=== PATIENT | male | born 1955 | race Caucasian/White ===

== ENCOUNTER 2019-07-11 15:11 | Inpatient (IN) ==
[2019-07-11] MEDS ORDERED: NS 1,000 ML IV ONE (15:17)
[2019-07-11] MEDS ORDERED: ZOFRAN IV ONE (15:17)
[2019-07-11 15:49] LABS: BASO# 0.04 X1000 (0.0-0.2); BASO% 0.3 % (0.0-0.8); EOS# 0.17 X1000 (0.0-0.7); EOS% 1.3 % (0.0-10.0); HEMATOCRIT 49.1 % (42.0-52.0); HEMOGLOBIN 16.8 g/dL (14.0-18.0); IMM GRAN# 0.07 X1000 (0.0-0.04); IMM GRAN% 0.5 % (0.0-0.5); LYMPH% 16.6 % (20.5-51.1); MCH 32.7 PG (27-31); MCHC 34.2 g/dL (33-37); MCV 95.7 FL (81-99); MONO# 0.97 X1000 (0.11-0.59); MONO% 7.3 % (1.7-9.3); MPV 10.4 FL (7.4-10.4); NEUT# 9.79 X1000 (1.4-6.5); PLT 217 X1000 (130-400); RBC 5.13 XMIL (4.7-6.1); RDW 12.6 % (11.5-14.5); WBC 13.24 X1000 (4.8-10.8)
[2019-07-11 15:51] LABS: BE -0.5 mmoll (-3.0-3.0); BLOOD TYPE ARTERIAL; HCO3-(ACT) 24.3 mmoll (20.0-26.0); METHB 0.9 % (0.0-1.5); O2(CT) 22.8 mL/dL (15.0-23.0); O2HB 90.5 % (95.0-99.0); PCO2(98.6) 42 mmHg (35-45); PO2(98.6) 62 mmHg (60-100); SAMPLE BLOOD; SAO2 94.6 % (95.0-100.0); pH(98.6) 7.38 (7.35-7.45)
[2019-07-11 15:52] LABS: ALLEN TEST YES; MODALITY ROOM AIR
--- NOTE | 2019-07-11 16:07 | EKG Report ---
Test Performed on : 07/11/2019 3:54:15 PM Test Reason : SYNCOPE,HYPOX Blood Pressure : / mmHG Vent. Rate : 076 BPM Atrial Rate : 076 BPM P-R Int : 238 ms QRS Dur : 150 ms QT Int : 448 ms P-R-T Axes : 060 -47 111 degrees QTc Int : 504 ms Sinus rhythm. with 1st degree AV block. Left bundle branch block Abnormal ECG No previous ECGs available Unconfirmed Result
[2019-07-11 16:08] LABS: INFLUENZA A NEGATIVE (NEGATIVE); INFLUENZA B NEGATIVE (NEGATIVE)
[2019-07-11 16:10] LABS: ACETONE SERUM NEGATIVE (NEGATIVE)
[2019-07-11 16:11] LABS: AGAP 15; ALBUMIN 4.1 g/dL (3.5-5.0); ALKALINE PHOSPHATASE 122 U/L (32-122); BUN 18 mg/dL (8-22); CALCIUM 9.3 mg/dL (8.8-10.2); CHLORIDE 100 mmol/L (98-107); COSMO 283; CREATININE 1.3 mg/dL (0.7-1.2); ESTIMATED GFR 56; GLUCOSE 162 mg/dL (70-104); GOT 21 U/L (10-34); GPT 22 U/L (10-44); SODIUM 139 mmol/L (136-145); TCO2 23 mmol/L (25-35); TOTAL PROTEIN 6.9 g/dL (6.3-8.3)
--- NOTE | 2019-07-11 16:15 | Diag Imaging Result Doc PS360 ---
EXAM: CHEST-PORTABLE HISTORY: SYNCOPE, HYPOX TECHNIQUE: Single view COMPARISON: None. FINDINGS: The lungs are well expanded. The heart is mildly prominent. The vessels are not distended. There are no infiltrates. No effusion identified. IMPRESSION: Mildly prominent heart Electronically signed by Jonatan Calloway 07/11/2019 4:12 PM
[2019-07-11 16:19] LABS: MAGNESIUM 1.9 mg/dL (1.5-2.7)
[2019-07-11 17:03] LABS: CK-MB 5.25 ng/mL (0.0-5.0)
[2019-07-11 17:37] LABS: UR AMPHETAMINES QUAL NONE DETECTED (NONE DETECT); UR BARBITUATES QUAL NONE DETECTED (NONE DETECT); UR BENZODIAZEPIN QUAL NONE DETECTED (NONE DETECT); UR CANNABINOIDS QUAL PRESUMPTIVE POSITIVE (NONE DETECT); UR COCAINE QUAL NONE DETECTED (NONE DETECT); UR METHADONE QUAL NONE DETECTED (NONE DETECT); UR METHAMPHETAMINE QUAL NONE DETECTED (NONE DETECT); UR OPIATES QUAL NONE DETECTED (NONE DETECT); UR OXYCODONE QUAL NONE DETECTED (NONE DETECT); UR PCP QUAL NONE DETECTED (NONE DETECT); UR PROPOXYPHENE QUAL NONE DETECTED (NONE DETECT); UR TCA QUAL NONE DETECTED (NONE DETECT)
--- NOTE | 2019-07-11 17:54 | PROVIDER DOCUMENTATION ---
This chart was entered by Angie Mendoza Scribe, acting as scribe for Seven Zepeda MD. HPI-Syncope/Dizziness - General Chief Complaint: Syncope Stated Complaint: SYNCOPE Time Seen by Provider: 07/11/19 15:12 Source: patient, EMS ([facility]) Allergies/Adverse Reactions: Patient Allergies Allergy/AdvReac Type Severity Reaction Status Date / Time No Known Allergies Allergy Verified 07/11/19 15:17 Home Medications: Home Medication List Medication Instructions Recorded Confirmed Last Taken Type ATORVAstatin [Lipitor] 10 mg PO DAILY 07/11/19 07/11/19 Unknown History Nabumetone [Relafen] 750 mg PO DAILY 07/11/19 07/11/19 Unknown History Ramipril 5 mg PO DAILY 07/11/19 07/11/19 Unknown History Tamsulosin [Flomax] 0.4 mg PO DAILY 07/11/19 07/11/19 Unknown History Tizanidine [Zanaflex] 4 mg PO DAILY 07/11/19 07/11/19 Unknown History - History of Present Illness-Syncope/Dizzy Nature of Presenting Problem: 64 yowm presents to the ed via ems for syncopal while outside in his barn. he reports that he hd sudden onset of syncopal episode and has hx of heat exhaustion 10 years prior. once pt regained awareness he had n/v x2 with ems on scene Prior Episodes: reports: remote history Onset/Duration: reports: just prior to arrival Timing: reports: improving Position/Activity at time of episode: reports: sitting Symptoms prior to episode: reports: none Context: reports: lost consciousness. denies: incontinent of urine, incontinent of stool, seizure activity observed Loss of Consciousness: brief (seconds) Location of injury. (If syncope resulted in an injury.): reports: none Current Symptoms: reports: nausea. denies: fever, short of breath, vomiting, dizzy Recently Seen Here or By Another Healthcare Provider: No Review of Systems - Adult - REVIEW OF SYSTEMS - ADULT Constitutional: denies: chills, fever Eyes: reports: no symptoms reported Ears, Nose, Mouth & Throat: reports: no symptoms reported Cardiovascular: denies: chest pain, palpitations Respiratory: denies: cough, shortness of breath, wheezing Gastrointestinal: reports: see HPI, nausea, vomiting. denies: abdominal pain Genitourinary: reports: no symptoms reported Musculoskeletal: denies: back pain, neck pain Integumentary: reports: no symptoms reported Neurological: reports: see HPI, syncope. denies: ataxia, dizziness/vertigo, headache/migraines, seizure, slurred speech, tremors Psychiatric: reports: no symptoms reported Endocrine: reports: no symptoms reported Hematologic/Lymphatic: reports: no symptoms reported Allergic/Immunologic: reports: no symptoms reported All Other Systems: Reviewed and Negative Past History - Adult - PAST MEDICAL HISTORY-ADULT Review of Records: reports: Old Records Reviewed, Nursing Assessment Review, Medications Reviewed, Social history reviewed & non-contributory. Major Childhood Illnesses: reports: denies history Cardiovascular: reports: HTN Respiratory: reports: denies history Gastrointestinal: reports: denies history Genitourinary: reports: denies history Musculoskeletal: reports: denies history Neurological: reports: denies history Psychiatric: reports: denies history Endocrine/Immune: reports: denies history Other Conditions: reports: denies history - PRIOR SURGERIES/PROCEDURES Surgical/Procedure History: reports: reviewed, not pertinent - IMMUNIZATION STATUS Childhood Immunizations: See Nurse Assessment Flu Vaccine: See Nurse Assessment - FAMILY HISTORY Family History: reviewed, not pertinent - SOCIAL HISTORY Smoking: denies Substance Use: denies Living Situation: family Physical Exam-General - PHYSICAL EXAM-ADULT Initial Vital Signs Reviewed: Yes - CONSTITUTIONAL General Appearance: alert, mild distress, obese - EYES Eyes: PERRL/EOMI, pink conjunctivae - HEAD, EARS, NOSE, MOUTH & THROAT HENMT: moist mucous membranes - NECK Neck: non-tender, full range of motion, supple, normal inspection - RESPIRATORY Respiratory: chest non-tender, lungs clear, normal breath sounds - CARDIOVASCULAR Cardiovascular: normal peripheral pulses, regular rate, rhythm - CHEST (BREASTS) Chest/Breast: deferred - GASTROINTESTINAL (ABDOMEN) Abdominal Exam: normal bowel sounds, non tender, soft, other (c/o nausea) - GENITOURINARY Male Genitalia: deferred Rectal Exam: deferred Hemoccult Exam: deferred - LYMPHATIC Lymphatic: no adenopathy - MUSCULOSKELETAL Back Exam: no CVA tenderness, no vertebral tenderness Extremity: normal range of motion, non-tender, normal inspection - SKIN Integumentary: normal color, normal turgor, warm/dry - NEUROLOGIC Neurologic: grossly normal - PSYCHIATRIC Psych/Mental Status: normal mood/affect, normal thought content, normal thought process, oriented x 3 Progress - PLAN OF CARE/RESULTS Progress/Plan/Lab Results: Vital Signs - 8 hr 07/11/19 15:12 07/11/19 15:30 07/11/19 17:47 Temperature 97.2 F L Pulse Rate 86 78 Respiratory Rate 18 19 Blood Pressure 137/82 153/85 O2 Sat by Pulse Oximetry 96 96 95 Laboratory Results - last 24 hr 07/11/19 07/11/19 07/11/19 15:30 15:30 15:30 WBC RBC Hgb Hct MCV MCH MCHC RDW Std Deviation Plt Count MPV Immature Gran % (Auto) Neut % (Auto) Lymph % (Auto) [place] % (Auto) Eos % (Auto) Baso % (Auto) Immature Gran # (Auto) Neut # (Auto) Lymph # (Auto) [place] # (Auto) Eos # (Auto) Baso # (Auto) ESR D-Dimer, Quantitative < 0.27 Specimen Type ARTERIAL Sample Site R RADIAL pH 7.38 pCO2 42 pO2 62 HCO3 24.3 Base Excess -0.5 Oxyhemoglobin 90.5 L ABG O2 Sat (Calculated) 22.8 ABG O2 Saturation 94.6 L ABG Carboxyhemoglobin 3.40 H ABG Methemoglobin 0.9 Miah Test YES A-a O2 Difference 35.0 Total Hemoglobin 18.0 H Lactate 2.00 Blood Gas Modality ROOM AIR FiO2 % 21.0 Sodium 139 Potassium 4.0 Chloride 100 Carbon Dioxide 23 L Anion Gap 15 BUN 18 Creatinine 1.3 H Estimated GFR/1.73 m2 56 BUN/Creatinine Ratio 14 Glucose 162 H Calculated Osmolality 283 Calcium 9.3 Magnesium Total Bilirubin 0.60 AST 21 ALT 22 Alkaline Phosphatase 122 Ammonia Creatine Kinase Creatine Kinase Index CK-MB (CK-2) Zuz-O-Umhkpcztvlg Pept Total Protein 6.9 Albumin 4.1 Globulin 3.0 Albumin/Globulin Ratio 1.0 Plasma Lactate Free T4 Urine Opiates Screen Ur Oxycodone Screen Urine Methadone Screen U Propoxyphene Qual Ur Barbituates Screen Ur Tricyclics Screen Ur Phencyclidine Scrn Ur Amphetamines Screen U Methamphetamines Scrn U Benzodiazepines Scrn Urine Cocaine Screen U Cannabinoids Screen Acetone Level NEGATIVE Influenza A (Rapid) Influenza B (Rapid) 07/11/19 07/11/19 07/11/19 15:30 15:30 15:30 WBC RBC Hgb Hct MCV MCH MCHC RDW Std Deviation Plt Count MPV Immature Gran % (Auto) Neut % (Auto) Lymph % (Auto) [place] % (Auto) Eos % (Auto) Baso % (Auto) Immature Gran # (Auto) Neut # (Auto) Lymph # (Auto) [place] # (Auto) Eos # (Auto) Baso # (Auto) ESR D-Dimer, Quantitative Specimen Type Sample Site pH pCO2 pO2 HCO3 Base Excess Oxyhemoglobin ABG O2 Sat (Calculated) ABG O2 Saturation ABG Carboxyhemoglobin ABG Methemoglobin Miah Test A-a O2 Difference Total Hemoglobin Lactate Blood Gas Modality FiO2 % Sodium Potassium Chloride Carbon Dioxide Anion Gap BUN Creatinine Estimated GFR/1.73 m2 BUN/Creatinine Ratio Glucose Calculated Osmolality Calcium Magnesium 1.9 Total Bilirubin AST ALT Alkaline Phosphatase Ammonia 19 Creatine Kinase 268 H Creatine Kinase Index 2.0 CK-MB (CK-2) 5.25 H Tdy-L-Ujbgeokomtg Pept Total Protein Albumin Globulin Albumin/Globulin Ratio Plasma Lactate 2.2 Free T4 Urine Opiates Screen Ur Oxycodone Screen Urine Methadone Screen U Propoxyphene Qual Ur Barbituates Screen Ur Tricyclics Screen Ur Phencyclidine Scrn Ur Amphetamines Screen U Methamphetamines Scrn U Benzodiazepines Scrn Urine Cocaine Screen U Cannabinoids Screen Acetone Level Influenza A (Rapid) Influenza B (Rapid) 07/11/19 07/11/19 07/11/19 15:30 15:30 15:30 WBC 13.24 H RBC 5.13 Hgb 16.8 Hct 49.1 MCV 95.7 MCH 32.7 H MCHC 34.2 RDW Std Deviation 12.6 Plt Count 217 MPV 10.4 Immature Gran % (Auto) 0.5 Neut % (Auto) 74.0 Lymph % (Auto) 16.6 L [place] % (Auto) 7.3 Eos % (Auto) 1.3 Baso % (Auto) 0.3 Immature Gran # (Auto) 0.07 H Neut # (Auto) 9.79 H Lymph # (Auto) 2.20 [place] # (Auto) 0.97 H Eos # (Auto) 0.17 Baso # (Auto) 0.04 ESR D-Dimer, Quantitative Specimen Type Sample Site pH pCO2 pO2 HCO3 Base Excess Oxyhemoglobin ABG O2 Sat (Calculated) ABG O2 Saturation ABG Carboxyhemoglobin ABG Methemoglobin Miah Test A-a O2 Difference Total Hemoglobin Lactate Blood Gas Modality FiO2 % Sodium Potassium Chloride Carbon Dioxide Anion Gap BUN Creatinine Estimated GFR/1.73 m2 BUN/Creatinine Ratio Glucose Calculated Osmolality Calcium Magnesium Total Bilirubin AST ALT Alkaline Phosphatase Ammonia Creatine Kinase Creatine Kinase Index CK-MB (CK-2) Qlz-S-Lpptenejhsl Pept 48 Total Protein Albumin Globulin Albumin/Globulin Ratio Plasma Lactate Free T4 1.17 Urine Opiates Screen Ur Oxycodone Screen Urine Methadone Screen U Propoxyphene Qual Ur Barbituates Screen Ur Tricyclics Screen Ur Phencyclidine Scrn Ur Amphetamines Screen U Methamphetamines Scrn U Benzodiazepines Scrn Urine Cocaine Screen U Cannabinoids Screen Acetone Level Influenza A (Rapid) Influenza B (Rapid) 07/11/19 07/11/19 07/11/19 15:30 15:30 17:08 WBC RBC Hgb Hct MCV MCH MCHC RDW Std Deviation Plt Count MPV Immature Gran % (Auto) Neut % (Auto) Lymph % (Auto) [place] % (Auto) Eos % (Auto) Baso % (Auto) Immature Gran # (Auto) Neut # (Auto) Lymph # (Auto) [place] # (Auto) Eos # (Auto) Baso # (Auto) ESR 1 D-Dimer, Quantitative Specimen Type Sample Site pH pCO2 pO2 HCO3 Base Excess Oxyhemoglobin ABG O2 Sat (Calculated) ABG O2 Saturation ABG Carboxyhemoglobin ABG Methemoglobin Miah Test A-a O2 Difference Total Hemoglobin Lactate Blood Gas Modality FiO2 % Sodium Potassium Chloride Carbon Dioxide Anion Gap BUN Creatinine Estimated GFR/1.73 m2 BUN/Creatinine Ratio Glucose Calculated Osmolality Calcium Magnesium Total Bilirubin AST ALT Alkaline Phosphatase Ammonia Creatine Kinase Creatine Kinase Index CK-MB (CK-2) Uyn-E-Lizbcxqsedj Pept Total Protein Albumin Globulin Albumin/Globulin Ratio Plasma Lactate Free T4 Urine Opiates Screen NONE DETECTED Ur Oxycodone Screen NONE DETECTED Urine Methadone Screen NONE DETECTED U Propoxyphene Qual NONE DETECTED Ur Barbituates Screen NONE DETECTED Ur Tricyclics Screen NONE DETECTED Ur Phencyclidine Scrn NONE DETECTED Ur Amphetamines Screen NONE DETECTED U Methamphetamines Scrn NONE DETECTED U Benzodiazepines Scrn NONE DETECTED Urine Cocaine Screen NONE DETECTED U Cannabinoids Screen PRESUMPTIVE POSITIVE A Acetone Level Influenza A (Rapid) NEGATIVE Influenza B (Rapid) NEGATIVE Orders Category Date Time Status Cardiac Monitoring DIRECTED Care 07/11/19 15:14 Active Cardiac Monitoring NOW Care 07/11/19 17:47 Active IV Insertion NOW Care 07/11/19 17:47 Active Isolation Precautions Setup NOW Care 07/11/19 15:35 Active Notify Provider of NEWS Score NOW Care 07/11/19 17:47 Active Orthostatic Vital Signs NOW Care 07/11/19 17:49 Active Saline Loc NOW Care 07/11/19 15:14 Active CHEST-PORTABLE [RAD] Stat Exams 07/11/19 15:15 Completed ABG [RESP] Routine Lab 07/11/19 15:30 Completed ACETONE SERUM [CHEM] Stat Lab 07/11/19 15:30 Completed AMMONIA [CHEM] Stat Lab 07/11/19 15:30 Completed CBC WITH ELECTRONIC DIFF [HEME] Stat Lab 07/11/19 15:30 Completed CK PROFILE [SP CHEM] Stat Lab 07/11/19 15:30 Completed COMPREHENSIVE METABOLIC PANEL [CHEM] Stat Lab 07/11/19 15:30 Completed COVID19 [RF] Routine Lab 07/11/19 17:36 Received D-DIMER [COAG] Stat Lab 07/11/19 15:30 Completed FERRITIN Stat Lab 07/11/19 15:30 Received FREE T4 Stat Lab 07/11/19 15:[address] Stat Lab 07/11/19 15:30 Completed LACTATE, PLASMA [CHEM] Stat Lab 07/11/19 15:30 Completed MAGNESIUM [CHEM] Stat Lab 07/11/19 15:30 Completed PRO B-NATRIURETIC PEPTIDE Stat Lab 07/11/19 15:30 Completed PROTIME WITH INR [COAG] Stat Lab 07/11/19 17:47 Ordered PTT [COAG] Stat Lab 07/11/19 17:47 Ordered SED RATE [HEME] Stat Lab 07/11/19 15:30 Completed TROPONIN T HIGH SENSITIVITY Stat Lab 07/11/19 17:47 [address] DRUG SCREEN [address] Stat Lab 07/11/19 17:08 Completed 0.9% Sodium Chloride Inj [Ns] 1,000 ml Med 07/11/19 15:17 Discontinued IV 999 mls/hr Ondansetron [Zofran] Med 07/11/19 15:17 Discontinued 4 mg IV NOW ONE O2 Per Protocol Stat Oth 07/11/19 17:47 Active EKG [EKG] Stat Ther 07/11/19 15:14 Draft Transfer/Admit Order [TRANSFER] Routine Transfer 07/11/19 17:47 Ordered Result Diagrams: 07/11/19 15:30 07/11/19 15:30 - REASSESSMENT Reassessment #1 Time Reassessed: 17:18 Status: improving (pt is resting in bed) - EKG 1 Time of EKG reading by physician:: 15:54 EKG Read and Signed by:: Seven Zepeda EKG Interpretation (*Must complete 3 of following elements*): Abnormal Rate: 76 Rhythm: sinus rhythm with 1st degree av block [place]: normal QRS: LBB TN Interval: normal ST Wave: normal - XRAY 1 XRAY: Bilateral XRAY Study: Chest Impression: See EMR Report (FINDINGS: The lungs are well expanded. The heart is mildly prominent. The vessels are not distended. There are no infiltrates. No effusion identified. IMPRESSION: Mildly prominent heart Electronically signed by Jonatan Calloway 07/11/2019 4:12 PM) - CONSULTS/PCP/HOSPITALIST Notification #1 *Consult/PCP/Hospitalist*: dr varela hospitalist Time Discussed: 17:43 Consult Disposition: Will see in ED, Admit Departure - Departure Date of Disposition Decision: 07/11/19 Time of Disposition Decision: 17:43 DIAGNOSIS: Hypoxemia, Elevation of cardiac enzymes, LBBB (left bundle branch block) Syncope Qualifiers: Syncope type: unspecified Qualified Code(s): R55 - Syncope and collapse Disposition: ADMITTED INPATIENT 09 Certified Medical Emergency: Emergent Condition: Stable Referrals and Follow-Ups: Amaury Patel MD [Primary Care Provider] - - Critical Care Note This patient required my direct & personal management of CC.: No Attestation - Physician/ MAE Attestation Patient care was provided by Advanced Practice Provider:: No The physician spent face to face time with patient:: Yes Advanced Practice Provider documentation review:: Supervising physician onsite and consulted in the evaluation and care of this patient. The physician did have a face to face encounter with the patient. This chart was documented by the indicated scribe, (Angie Mendoza Scribe) and accurately reflects the services I performed and decisions made by me, Seven Zepeda MD, as attested by the provider's signature.
[2019-07-11 17:58] LABS: INR 0.92; PROTIME 12.8 Seconds (11.0-16.0)
--- NOTE | 2019-07-11 18:48 | EKG Report ---
Test Performed on : 07/11/2019 6:34:15 PM Test Reason : repeat Blood Pressure : / mmHG Vent. Rate : 079 BPM Atrial Rate : 079 BPM P-R Int : 236 ms QRS Dur : 150 ms QT Int : 406 ms P-R-T Axes : 052 -36 135 degrees QTc Int : 465 ms Sinus rhythm. with 1st degree AV block. Left axis deviation Left bundle branch block Abnormal ECG When compared with ECG of 11-JUL-2019 15:54, (Unconfirmed) No significant change was found Unconfirmed Result
[2019-07-11 20:00] LABS: CK-MB 4.8 ng/mL (0.0-5.0)
[2019-07-11] MEDS ORDERED: ZOFRAN IV PRN (20:19)
[2019-07-11] MEDS ORDERED: TYLENOL PO PRN (20:19)
[2019-07-11] MEDS: NS 1,000 ML IV SCH (20:45)
[2019-07-12 00:43] LABS: CK INDEX 1.9 (0.0-2.5); CK-MB 4.5 ng/mL (0.0-5.0)
[2019-07-12] MEDS: NS 1,000 ML IV SCH ×5 (01:23→23:13)
[2019-07-12 04:20] LABS: CK INDEX 1.9 (0.0-2.5); CK-MB 4.32 ng/mL (0.0-5.0)
[2019-07-12 06:12] LABS: BASO# 0.03 X1000 (0.0-0.2); BASO% 0.3 % (0.0-0.8); EOS# 0.16 X1000 (0.0-0.7); EOS% 1.5 % (0.0-10.0); HEMATOCRIT 48.2 % (42.0-52.0); HEMOGLOBIN 16.3 g/dL (14.0-18.0); IMM GRAN# 0.05 X1000 (0.0-0.04); IMM GRAN% 0.5 % (0.0-0.5); LYMPH# 1.44 X1000 (1.2-3.4); LYMPH% 13.9 % (20.5-51.1); MCH 32.7 PG (27-31); MCHC 33.8 g/dL (33-37); MCV 96.6 FL (81-99); MONO# 0.91 X1000 (0.11-0.59); MONO% 8.8 % (1.7-9.3); MPV 10.4 FL (7.4-10.4); NEUT# 7.76 X1000 (1.4-6.5); PLT 184 X1000 (130-400); RBC 4.99 XMIL (4.7-6.1); RDW 12.8 % (11.5-14.5); WBC 10.35 X1000 (4.8-10.8)
[2019-07-12 06:21] LABS: AGAP 12; ALBUMIN 4.2 g/dL (3.5-5.0); ALKALINE PHOSPHATASE 114 U/L (32-122); BUN 15 mg/dL (8-22); CALCIUM 9.3 mg/dL (8.8-10.2); CHLORIDE 104 mmol/L (98-107); CHOLESTEROL 123 mg/dL (0-200); COSMO 281; CREATININE 0.8 mg/dL (0.7-1.2); ESTIMATED GFR > 60; GLUCOSE 113 mg/dL (70-104); GOT 18 U/L (10-34); GPT 20 U/L (10-44); HDL 32 mg/dL (35-55); LDL 66 mg/dL; POTASSIUM 4.1 mmol/L (3.5-5.1); SODIUM 140 mmol/L (136-145); TCO2 23 mmol/L (25-35); TOTAL PROTEIN 6.8 g/dL (6.3-8.3); TRIGLYCERIDES 126 mg/dL (39-160); VLDL 25 mg/dL
[2019-07-12] MEDS ORDERED: ZANAFLEX PO SCH (09:00)
[2019-07-12] MEDS ORDERED: RELAFEN PO SCH (09:00)
[2019-07-12] MEDS ORDERED: ALTACE PO SCH (09:00)
[2019-07-12] MEDS ORDERED: FLOMAX PO SCH (09:00)
[2019-07-12] MEDS ORDERED: LIPITOR PO SCH (09:00)
[2019-07-12] MEDS ORDERED: ASPIRIN EC PO SCH (12:00)
[2019-07-12] MEDS ORDERED: TOPROL XL PO SCH (12:00)
--- NOTE | 2019-07-12 12:12 | PROGRESS NOTE ---
DATE: 07/12/2019 SUBJECTIVE: Patient has no major complaints. OBJECTIVE: Vital signs: Blood pressure is 161/93, heart rate of 79, respiratory rate of 20, temperature 98.4 degrees, 98% on 2 L. Cardiovascular: Regular rate and rhythm. Pulmonary: Bilateral breath sounds clear to auscultation. GI: Soft, nontender, nondistended. LABORATORY DATA: White count is down to 10, H H 16 and 48. Carbon dioxide 23, BUN and creatinine are down to 15 and 0.8, so hydration did help. CK still up a little bit at 230. LDL is only 66. EKG showed left bundle. PROBLEM LIST: 1. Syncope. I discussed the case with Dr. Warner who feels he needs an ischemic workup, stress test. We did not keep him NPO unfortunately, plus he is being ruled out for COVID, so I think that until that is completed, we got to wait to do his testing, but we are going to go ahead and try to get carotid and echo today. I think his risk of COVID is very minimal. Even if he is positive, I do not think that explains his syncope nor his left bundle branch block, but again I would be surprised. He is not febrile. He has no cough. He has no shortness of breath. There is no hypoxia. So in any case, Dr. Warner would like to pursue Lexiscan and will need echo and carotid, monitor on telemetry. 2. Hypertension. We may need to adjust up his Altace. He is only on 5 a day. We will continue to monitor because I do not think he got his blood pressure medicines yesterday. 3. Early rhabdomyolysis. I have held his statin. His LDL is pretty well in control at the discretion of Dr. Warner, but we will need to start aspirin, and I think we will probably put him on some beta blockers as well. cc: Usman Montgomery MD
--- NOTE | 2019-07-12 12:38 | HISTORY AND PHYSICAL ---
CHIEF COMPLAINT: Passing out. HISTORY: This is a 64-year-old male with history of hypertension alone. No cardiac history, and it looks like dyslipidemia and BPH. He reportedly passed out. Now, he told me, he was sitting down. The ER report says he has had a syncopal episode while he was outside in his barn, maybe he was sitting in his barn. In any case, he was not being active. He had not had any precursor symptoms. No palpitations. No chest pain. No dyspnea. No chest pressure. No warning. He just passed out. He states that he did not completely pass out, but nearly passed out. He had 2 episodes of nausea and vomiting with EMS. He has had a history of syncope before. It looks like 10 years ago, but that was associated with heat exhaustion. His workup in the ER really was unremarkable except he had a pretty significant EKG finding of a left bundle branch block. This was confirmed on 2 different EKGs based about 3 hours apart. Again, he is asymptomatic. He was not orthostatic. He had serial enzymes that were negative. They were completely normal. His CK's were up a little bit, but his high sensitivity troponins were negative, and that was 3:30 to 03:00 in the morning so over 12 hours, and may have a little bit of rhabdo it looks like. In any case, the patient was admitted for syncope and new finding of left bundle branch block. PHYSICAL EXAMINATION: VITAL SIGNS: Blood pressure 161/93, heart rate of 79, respiratory rate of 20, temperature 98.4 degrees, and 98% on 2 L. GENERAL: A well-developed male in no acute distress. HEENT: Head exam was normocephalic and atraumatic. Eyes: Pupils equal, round, and reactive to light. Extraocular movements were intact. Ears, nose and throat exam, he had moist mucous membranes. NECK: Supple. He is somewhat flushed, but he may have a soft S1 murmur. It was a little bit difficult to completely elaborate on that because his heart sounds were diminished. EXTREMITIES: No clubbing or cyanosis. LYMPHATIC: No peripheral edema. NEUROLOGICAL: Exam was nonfocal. LABORATORY DATA: Again, basic showed a creatinine of 1.3, CPK 268. Troponin was negative. Lactate was normal. EKG showed left bundle. Chest x-ray was negative. D-dimer was negative. There is no hypoxia. UDS was positive for cannabinoids alone. ASSESSMENT AND PLAN: This is a 64-year-old male with syncope, and a new left bundle branch block. 1. Syncope. He will need to be ruled out. Monitor on telemetry. I am going to get a Cardiology consult because unfortunately he was screened for COVID-19 which he has no viral prodrome. This is pure syncope with an abnormal EKG, so this is cardiac, either CAD or arrhythmia until proven otherwise, but now that he has been screened for COVID, he is trapped in the COVID protocol rule out, and will not be able to get appropriate testing for now in any case, but he does need an echocardiogram, carotid ultrasound, and probably an ischemic workup. 2. Hypertension. Continue regular medications and follow. 3. Early rhabdomyolysis. We need to consider holding his statin and tracking his CK. Continue IV fluids until that can be stabilized. This is a patient of Dr. Patel. cc: Usman Montgomery MD
--- NOTE | 2019-07-12 14:34 | Vascular Study Report ---
EXAM: Carotid Ultrasound HISTORY: tia TECHNIQUE: Carotid Doppler ultrasound COMPARISON: None. FINDINGS: Right: There is good flow in the common carotid artery. No occlusion or stenosis. No plaque identified in the internal carotid artery. Peak systolic velocity in the internal carotid artery 67 cm. The ICA/CCA ratio 0.63. Antegrade vertebral flow. Left: There is normal flow in the common carotid artery. No occlusion or stenosis. No definite plaque in the bulb. Peak systolic velocity in the internal carotid artery 73 cm/s. The ICA/CCA ratio 0.63. Antegrade vertebral flow. IMPRESSION: No significant stenosis within either common carotid artery are within either internal carotid artery. Electronically signed by Jonatan Calloway 07/12/2019 2:31 PM
[2019-07-12] MEDS ORDERED: TYLENOL PO PRN (17:06)
[2019-07-12] MEDS ORDERED: ZOFRAN IV PRN (17:07)
--- NOTE | 2019-07-12 22:21 | ECHO REPORT ---
ORDER DATE: 07/12/2019 MEASUREMENTS: Septal thickness 1.3, left ventricular internal diameter in diastole 6.1, posterior wall thickness 1.3, aortic root 3.7, left atrium 4.3. SUMMARY: 1. Technically limited study due to limited acoustic window quality. 2. Aortic valve is trileaflet and opens normally on 2-dimensional images. The peak gradient across the aortic valve is 23 mmHg with a mean gradient of 13 mmHg. Mitral and tricuspid valves are without evidence of structural abnormality while pulmonic valve is not well demonstrated. There is very mild mitral regurgitation, trace tricuspid regurgitation, and trace pulmonic insufficiency. The aortic root is normal in size. 3. Mild left ventricular enlargement with mild concentric left ventricular hypertrophy suggested. The estimated left ventricular ejection fraction is approximately 40% to 45% in the setting of mild global hypokinesis. Doppler suggests grade 1 left ventricular diastolic dysfunction. The left atrium is mildly enlarged. The right atrium and right ventricle are grossly normal in size with grossly preserved right ventricular systolic function. 4. No pericardial fusion. 5. Appearance of inferior vena cava suggests normal central venous pressure. CONCLUSIONS: 1. Technically difficult study. 2. Mild mitral regurgitation. 3. Mild left ventricular enlargement with mild concentric left ventricular hypertrophy and estimated ejection fraction of 40% to 45%. 4. Grade 1 left ventricular diastolic dysfunction suggested. 5. Mild left atrial enlargement. cc: MD Usman Cruz MD
[2019-07-13 07:11] LABS: BASO# 0.06 X1000 (0.0-0.2); BASO% 0.7 % (0.0-0.8); EOS# 0.25 X1000 (0.0-0.7); EOS% 2.9 % (0.0-10.0); HEMATOCRIT 49.6 % (42.0-52.0); HEMOGLOBIN 16.6 g/dL (14.0-18.0); IMM GRAN# 0.04 X1000 (0.0-0.04); IMM GRAN% 0.5 % (0.0-0.5); LYMPH% 19.5 % (20.5-51.1); MCH 32.3 PG (27-31); MCHC 33.5 g/dL (33-37); MCV 96.5 FL (81-99); MONO# 0.57 X1000 (0.11-0.59); MONO% 6.5 % (1.7-9.3); MPV 10.8 FL (7.4-10.4); NEUT# 6.11 X1000 (1.4-6.5); NEUT% 69.9 % (42.2-75.2); PLT 166 X1000 (130-400); RBC 5.14 XMIL (4.7-6.1); WBC 8.73 X1000 (4.8-10.8)
[2019-07-13 07:23] LABS: AGAP 13; ALB/GLOB RATIO 1.9; ALBUMIN 4.1 g/dL (3.5-5.0); ALKALINE PHOSPHATASE 109 U/L (32-122); BUN 13 mg/dL (8-22); CALCIUM 8.9 mg/dL (8.8-10.2); CHLORIDE 105 mmol/L (98-107); CK TOTAL 184 U/L (24-204); COSMO 281; CREATININE 0.8 mg/dL (0.7-1.2); ESTIMATED GFR > 60; GLUCOSE 100 mg/dL (70-104); GOT 17 U/L (10-34); GPT 18 U/L (10-44); SODIUM 141 mmol/L (136-145); TCO2 23 mmol/L (25-35); TOTAL PROTEIN 6.3 g/dL (6.3-8.3)
[2019-07-13] MEDS ORDERED: ALTACE PO SCH (09:00)
[2019-07-13] MEDS: NS 1,000 ML IV SCH ×2 (09:01→19:03)
[2019-07-13] MEDS: FISH OIL CONCENTRATE PO SCH (09:02)
[2019-07-13] MEDS: CENTRUM SILVER PO SCH (09:04)
[2019-07-13] MEDS: ASPIRIN EC PO SCH (09:04)
[2019-07-13] MEDS: ZANAFLEX PO SCH (09:04)
[2019-07-13] MEDS: FLOMAX PO SCH (09:04)
[2019-07-13] MEDS: RELAFEN PO SCH (09:04)
[2019-07-13] MEDS: TOPROL XL PO SCH (09:04)
--- NOTE | 2019-07-13 14:34 | CONSULTATION ---
DATE OF CONSULTATION: 07/13/2019 IMPRESSION: 1. Recent near-syncope/syncope with associated flushing possibly autonomic in origin. 2. Left bundle branch block of undetermined age. 3. Hypertension. RECOMMENDATIONS: 1. Continue to monitor on telemetry. 2. Arrange screening Lexiscan sestamibi study to further evaluate abnormal ECG and left bundle branch block. HISTORY: This 64-year-old white male with past history of hypertensive cardiovascular disease was admitted for evaluation of possible syncope. He relates that on the day of admission around 1:30 p.m. he was sitting in chair in a shed with a friend. They had just ridden in on a 4 [address] and sat down. They had previously smoked some marijuana an hour before. He relates that he suddenly started to feel hot all over. He had some mild diaphoresis. There was no chest pain or palpitations. He became very weak. Symptoms persisted. He is not quite sure if he passed out momentarily with this. EMS was summoned and while en route, he vomited. He improved spontaneously without intervention in the emergency room. ECG revealed left bundle branch block of undetermined age. Because of this he was admitted for further workup. He has history of similar episode perhaps a year ago. He is not very active and is in fact quite sedentary. He does smoke occasional marijuana but does not smoke cigarettes or use alcohol. PAST MEDICAL HISTORY: 1. Hypertension. 2. Obesity. ALLERGIES: He has no known drug allergies. MEDICATIONS PRIOR TO ADMISSION: As listed. 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 He does not smoke cigarettes. He does smoke occasional marijuana. He does not use alcohol. FAMILY HISTORY: Negative for premature coronary disease. REVIEW OF SYSTEMS: Pulmonary: Noncontributory. Gastrointestinal: Noncontributory beyond history of present illness. Constitutional: Noncontributory. Remainder review of systems negative/noncontributory beyond history present illness with 14 total systems reviewed. PHYSICAL EXAM: He is an obese older middle-aged white male in no distress.Vital signs: Blood pressure 153/78, heart rate 66, oxygen saturation 99%. HEENT: Extraocular movements appear intact. Mucous membranes are moist. Neck: Supple without jugular venous distention. There are no carotid bruits. Chest: Clear to auscultation bilaterally. Cardiac Exam: Reveals a regular rate and rhythm without appreciable murmur or gallop. Abdomen: Soft. Bowel sounds normal. Extremities: Without edema. Neurologic: Reveals him to be alert and fully oriented. Speech is fluent. Moves all 4 extremities equally well. Skin: Warm and dry. Psychiatric: Reveals mood to be appropriate. PERTINENT DATA: Twelve lead EKG demonstrates sinus rhythm, left axis deviation, left bundle branch block. Telemetry monitoring demonstrates steady sinus rhythm. LABORATORY DATA: Includes white blood cell count 8.73, hematocrit 49.6, hemoglobin 16.6, platelet count 166,000. Sodium 141, potassium 4.0, chloride 105, carbond dioxide 23, BUN 13, creatinine 0.8, glucose 100. Initial troponin T high sensitivity 14 with followup troponin T high sensitivity 14, 12, and 15. Drug screen positive for cannabis. Echocardiography demonstrates mild mitral regurgitation, mild concentric left hypertrophy, estimated left ejection fraction 45%, grade 1 left ventricular diastolic dysfunction, mild left atrial enlargement. cc: True Loredo MD [facility]
--- NOTE | 2019-07-13 17:50 | PROGRESS NOTE ---
DATE: 07/13/2019 SUBJECTIVE: He has no complaints. OBJECTIVE: vital signs: Blood pressure 165/84, heart rate 66, respiratory rate 20, temperature 98.2 degrees, and oxygen saturation 99 percent on 3 L. Cardiovascular: Regular rate and rhythm. Pulmonary: Bilateral breath sounds. Clear to auscultation. Gastrointestinal: Soft, nontender, nondistended. Bowel sounds were positive. LABORATORY DATA: White count 8, hemoglobin and hematocrit 16 and 49, platelets 166,000. Basic was normal. His CPK is down. PROBLEM LIST: 1. Syncope with a new left bundle branch block. His echocardiogram was abnormal. It showed an ejection fraction of 40 percent to 45 percent and grade 1 left ventricular diastolic dysfunction. So he may have some diastolic dysfunction and early systolic dysfunction which pushes forward need for ischemic cardiac workup. In any case, Cardiology has seen him and we are going to pursue stress test on Monday. 2. He is a coronavirus disease rule out, which I think is unlikely. He does not have any symptoms. 3. Hypertension. He is on ramipril and metoprolol without really much improvement; a little bit of improvement, but not a ton. I may push the dose a little bit on the ramipril now that his kidney function is better. So if ischemic testing is negative, likely home Monday hopefully. cc: Usman Montgomery MD
[2019-07-13] MEDS: ALTACE PO SCH (20:18)
[2019-07-14] MEDS: NS 1,000 ML IV SCH ×2 (00:38→06:15)
[2019-07-14] MEDS: RELAFEN PO SCH (09:42)
[2019-07-14] MEDS: CENTRUM SILVER PO SCH (09:44)
[2019-07-14] MEDS: FISH OIL CONCENTRATE PO SCH (09:44)
[2019-07-14] MEDS: TOPROL XL PO SCH (09:44)
[2019-07-14] MEDS: ASPIRIN EC PO SCH (09:44)
[2019-07-14] MEDS: ALTACE PO SCH ×2 (09:44→21:50)
[2019-07-14] MEDS: FLOMAX PO SCH (09:44)
[2019-07-14] MEDS: ZANAFLEX PO SCH (09:44)
--- NOTE | 2019-07-14 15:47 | PROGRESS NOTE ---
DATE: 07/14/2019 SUBJECTIVE: The patient has no major complaints. OBJECTIVE: Blood pressure is 175/87, heart rate 79, respiratory rate 28, temperature 98.3 degrees, 99% on 3 L. Cardiovascular: Regular rate and rhythm. Pulmonary: Bilateral breath sounds clear to auscultation. GI: Soft, nontender, nondistended. Bowel sounds were positive. White count 8, hemoglobin and hematocrit 16 and 49, platelets 166,000. Basic was normal. CPK is down to normal. Those are actually yesterday's labs. PROBLEM LIST: 1. Syncope, left bundle branch block. We are planning for an ischemic workup tomorrow with stress test. 2. Covid disease, rule out. 3. Hypertension, is still not controlled. He is on Altace and metoprolol. If his numbers are not much better tomorrow, anticipate we will have to add another agent. cc: Usman Montgomery MD
[2019-07-15] MEDS ORDERED: LEXISCAN ONE (09:21)
[2019-07-15 11:34] VITALS: BP 158/90
[2019-07-15] MEDS: ALTACE PO SCH (11:46)
[2019-07-15] MEDS: TOPROL XL PO SCH (11:46)
[2019-07-15] MEDS: FLOMAX PO SCH (11:46)
[2019-07-15] MEDS: CENTRUM SILVER PO SCH (11:47)
[2019-07-15] MEDS: FISH OIL CONCENTRATE PO SCH (11:47)
[2019-07-15] MEDS: ZANAFLEX PO SCH (11:47)
[2019-07-15] MEDS: ASPIRIN EC PO SCH (11:47)
[2019-07-15] MEDS: RELAFEN PO SCH (11:48)
--- NOTE | 2019-07-15 13:53 | Diag Imaging Result Document ---
PROCEDURE NAME: MYOCARDIAL PERF SCAN, STR/REST - 07/15/2019 INDICATION: Chest pain. PROCEDURES PERFORMED: 1. Lexiscan stress. 2. One-day stress rest myocardial perfusion imaging (rest dose 15.8 millicuries, stress dose 45.7 mCi). FINDINGS: LEXISCAN STRESS RESULTS: 1. Baseline EKG shows sinus rhythm, PAC identified, nonspecific intraventricular conduction delay. 2. Lexiscan stress does not demonstrate any clear evidence of ischemic-related EKG changes or significant arrhythmias during the course of the stress. There were some couplet PVCs identified. PERFUSION IMAGING RESULTS: 1. No evidence of abnormal extracardiac uptake. 2. TID ratio 0.88. 3. Perfusion imaging demonstrates a moderate-sized, mild intensity, fixed defect in the inferior apical, mid inferior, and basal inferior segments. This could represent soft tissue attenuation. 4. There is a reduced ejection fraction of 39%. End-diastolic volume 169, end-systolic volume 102. Mild global hypokinesis noted. cc: MD Usman Cornell MD
--- NOTE | 2019-07-15 15:33 | PROGRESS NOTE ---
DATE: 07/15/2019 SUBJECTIVE: Patient continues without chest discomfort, shortness of breath, or palpitations on room air. He continues in steady sinus rhythm. OBJECTIVE: Blood pressure 158/90, heart rate 85, oxygen saturation 94% on room air. There is no significant jugular venous distention. Chest is clear to auscultation bilaterally. Cardiac Examination: Reveals a regular rate and rhythm without appreciable murmur or gallop. There is no evidence of peripheral edema. Laboratory Data: Includes a white blood cell count of 8.73, hematocrit 49.6, hemoglobin 16.6. Sodium 141, potassium 4.0, chloride 105, carbon dioxide 23, BUN 13, creatinine 0.8, glucose 100. Initial troponin T high sensitivity 14 with followup troponin T high sensitivities 14, 12, and 15. Echocardiography reports mild left ventricular hypertrophy with an estimated left ventricular ejection fraction of 40 to 50 percent. Lexiscan sestamibi study performed today demonstrates fixed, moderate size, moderate perfusion defect in the basal and mid inferior wall with corresponding preserved regional wall motion. This is most consistent with diaphragm attenuation artifact, given the patient's body habitus. There is no convincing scintigraphic evidence of inducible myocardial ischemia. Left ventricular ejection fraction is 40%. IMPRESSION: 1. Recent near-syncope/possible syncope with associated flushing. Suspect autonomic in origin more likely given clinical features. No evidence of arrhythmia. 2. Left bundle branch block. Noninvasive cardiac studies demonstrate left ventricular ejection fraction around 40% with no evidence of inducible myocardial ischemia. Echocardiography also indicates left ventricular hypertrophy, suspect related to underlying hypertensive cardiovascular disease. 3. Hypertensive cardiovascular disease. Blood pressure borderline. RECOMMENDATIONS: 1. At this point, it is reasonable for patient to be discharged to home as it would appear that his near-syncope/syncope was likely autonomic in origin, possibly vasovagal given clinical features, and that noninvasive cardiac studies suggest that he is stable from a cardiac standpoint. 2. Continue current angiotensin converting enzyme inhibitor, ramipril. Consider switching to carvedilol. This certainly could be done as an outpatient. cc: True Loredo MD
--- NOTE | 2019-07-15 16:43 | DISCHARGE SUMMARY ---
ADMISSION DATE: 07/11/2019 DISCHARGE DATE: 07/15/2019 DISCHARGE DIAGNOSES: 1. Syncope. 2. Left bundle-branch block. 3. Rule out Coronavirus Disease 2019 (COVID 19) . 4. Hypertension. CONSULTATIONS: Cardiology. PROCEDURES: None. HISTORY OF PRESENT ILLNESS: Briefly this is a 64-year-old male who has had an issue with passing out previously who had a spontaneous episode of passing out while he was outside his barn. Apparently, he was sitting at the time. No symptoms previously. EKG, unfortunately, did show a left bundle which we had nothing to compare it to, for some reason, I guess just because of the pandemic. He did not have any temperature, chest x-ray issues or shortness of breath, but he was screened for COVID and it was negative. Carotid Doppler did not show any major obstruction. His echocardiogram did show a somewhat diminished EF 40% to 45%, although technically still not systolic dysfunction. He had left ventricular hypertrophy and diastolic dysfunction. Cardiology was consulted because the left bundle, and he eventually underwent myocardial perfusion testing which did not show any reversible defects. He had a mild intensity fixed defect but felt to be soft tissue attenuation. The patient was discharged in stable condition. DISCHARGE MEDICATIONS: Multivitamin daily, fish oil 2400 daily, Flomax 0.4 daily, Lipitor 10 daily, ramipril 5 b.i.d. was increased. Relafen 750 daily. Testosterone is every 2 weeks. Zanaflex. We will give him Toprol-XL 25 daily. DISPOSITION/PLAN: [facility]ourage [facility]. He has seen Dr. Loredo and his PCP, Amaury Patel MD, as well. cardiac workup is negative. He never had any heart failure or anything to that effect. TIME SPENT: This was a 32-minute discharge. cc: Usman Montgomery MD
== END 2019-07-15 16:03 | disposition home or self-care (01) | DRG 312 ==
LOC: P.ED 15:11 → P.MEDSURG 20:01 → 4N 07-12 16:57
PROVIDERS: ATTEND Internal Medicine